=== PATIENT | male | born 1980 | race Caucasian/White ===

== ENCOUNTER 2025-05-27 08:22 | Day surgery (SDC) | payer OTHER ==
[2025-05-27] VITALS (19 sets, daily range): BP systolic 104–129; BP diastolic 75–93
[~2025-05-27 08:22] MED LIST: ATOR40TA PO; Nicoderm Cq1 EAC1 TOP; OLME20 PO; SERT100 PO
--- NOTE | 2025-05-27 08:50 | NUR ---
PT AMBULATORY TO DAY SURGERY WITH STEADY GAIT. DENIES NEED TO USE RESTROOM. BELONGINGS REMOVED AND PLACED IN DAY SURGERY BAY WITH PT. History, Chart, Medications and Allergies reviewed before start of procedure. Pre-Op teaching done. Pt verbalizes understanding. Patient States Post-Procedure ride home has been arranged WITH FRIEND. PT REPORTS HAVING "SOME BLACK COFFEE AT 6 THIS MORNING". PT ALSO REPORTS HAVING A "STUFFY" NOSE. NO CURRENTLY COUGHING, OXYGEN LEVEL IN HIGH 90'S AND LUNGS ARE CLEAR T/O.
--- NOTE | 2025-05-27 09:06 | NUR ---
05/27/25 0906 Odell Casey CONFIRMED AND REVIEWED H&P, MEDCICATIONS, ALLERGIES, MEDICAL HISTORY, RESPIRATORY HISTORY, VITAL SIGNS, 3-LEAD EKG, CONSENTS, AND PHYSICIAN ORDERS. PATIENT CONFIRMS NPO STATUS AND AGREES WITH SCHEDULED PROCEDURE. MONITOR INTACT WITH CONTINUOUS PULSE OXIMETRY, CAPNOGRAPHY, 3-LEAD EKG, INTERMITTENT BP. SUPPLEMENTAL O2 TO BE TITRATED THROUGHOUT PROCEDURE TO MAINTAIN O2 SATURATION ABOVE 90%. PATIENT DETERMINED TO BE ASA APPROPRIATE FOR PROPOFOL SEDATION PRIOR TO START OF PROCEDURE BY DR. VANEGAS
== END 2025-05-27 09:52 | disposition home or self-care (01) ==
LOC: ORSCMMR 08:22 → ORD 09:45 → ORSCMMR 09:52 → ORD 06-10 12:00
PROVIDERS: Family Medicine
PROC: 0DBP8ZX Excision of Rectum, Via Natural or Artificial Opening Endoscopic, Diagnostic (ICD-10-PCS; principal; 2025-05-27 09:45)
DX: Z12.11 Encounter for screening for malignant neoplasm of colon (principal); K62.1 Rectal polyp; K64.4 Residual hemorrhoidal skin tags; K62.89 Other specified diseases of anus and rectum; F17.210 Nicotine dependence, cigarettes, uncomplicated; I10 Essential (primary) hypertension; E78.2 Mixed hyperlipidemia; F41.1 Generalized anxiety disorder; Z79.899 Other long term (current) drug therapy
CPT/HCPCS: 88305; J2704; J7120